=== PATIENT | male | born 1995 | race African-American/Black ===

== ENCOUNTER 2016-06-25 18:53 | Emergency (ER) | payer OTHER ==
[~2016-06-25] VITALS: Ht 175.3 cm; Wt 70.3 kg
[2016-06-25] MEDS ORDERED: CROT60CR TP (21:20)
[2016-06-25] MEDS ORDERED: HYDR-3781 PO (21:20)
[2016-06-25] MEDS ORDERED: METH4TAB PO (21:20)
--- NOTE | 2016-06-25 21:20 | ED Integumentary General ---
General Chief Complaint: Skin/Wound Problems Stated Complaint: UNKNOWN BITE CUEVAS ON BODY Nursing Triage Note: pt reports multiple welts/assumed bug bite cuevas on upper body et face. possibly from hotel bed. Source: patient, RN notes reviewed Exam Limitations: no limitations History of Present Illness Time seen by provider: 21:15 Initial Comments As above and below. Timing/Duration: yesterday Severity: moderate Location: face, torso Possible Cause: other (? bed bugs) Associated Symptoms: rash Allergies and Home Medications Allergies Coded Allergies: nut - unspecified (Unverified Allergy, Unknown, 06/26/16) Home Medications Crotamiton 60 Gm Cream..g., 60 GM TP UD, #1 Ref 0 Prescribed by: ESMER MARIO on 06/25/162119 Hydroxyzine Pamoate 25 Mg Capsule, 25 MG PO Q6H PRN for ITCHING, #30 Ref 0 Prescribed by: ESMER MARIO on 06/25/162119 Methylprednisolone 4 Mg Tab.ds.pk, 4 MG PO UD, #1 Ref 0 Prescribed by: ESMER MARIO on 06/25/162119 Constitutional: see HPI Skin: see HPI, pruritus, rash All Other Systems Reviewed Negative Unless Noted: Yes (Negative excepted noted.) Past [id number] Hx Patient Social History Recent Foreign Travel: No Contact w/Someone Who Travel: No Recent Infectious Disease Expo: No Physical Exam Vital Signs Capillary Refill : Less Than 3 Seconds General Appearance: WD/WN, no apparent distress HEENT: pharynx normal Cardiovascular: regular rate, rhythm Respiratory: no respiratory distress Neurologic/Psychiatric: no motor/sensory deficits, alert, oriented x 3 Skin: warm/dry, rash Skin Problem Location: scalp, torso Skin Problem Character: erythema, macules, papules Progress/Results/Core Measures Results/Orders My Orders Orders - ESMER MARIO DO Prednisone Tablet (Deltasone Tablet) (06/25/16 21:30) Hydroxyzine Oral (Vistaril Capsule) (06/25/16 21:30) Vital Signs/I&O Blood Pressure Mean: 91 Departure Impression Impression: Primary Impression: Insect bite Disposition: 01 HOME, SELF-CARE Condition: Stable Departure-Patient Inst. Decision time for Depature: 21:16 Referrals: NO,LOCAL PHYSICIAN (PCP/Family) Primary Care Physician Patient Instructions: Bedbugs, Insect Bites and Stings (DC) Scripts Crotamiton (Eurax) 60 Gm Cream..g. 60 GM TP UD, #1 TUBE 0 Refills Prov: ESMER MARIO DO 06/25/16 Methylprednisolone (Medrol) 4 Mg Tab.ds.pk 4 MG PO UD, #1 PKG 0 Refills Prov: ESMER MARIO DO 06/25/16 Hydroxyzine Pamoate (Hydroxyzine Pamoate) 25 Mg Capsule 25 MG PO Q6H Y for ITCHING, #30 CAP 0 Refills Prov: ESMER MARIO DO 06/25/16 ESMER MARIO DO Jun 25, 2016 21:20
[2016-06-25 21:29] VITALS: BP 128/60
[2016-06-25] MEDS ORDERED: hydrOXYzine (VISTARIL) 25 MG CAP PO ONE (21:30)
[2016-06-25] MEDS ORDERED: predniSONE 20 MG TAB PO ONE (21:30)
== END 2016-06-25 21:29 | disposition home or self-care (01) ==
LOC: ER 18:56
DX: S30.861A Insect bite (nonvenomous) of abdominal wall, initial encounter (principal); S00.86XA Insect bite (nonvenomous) of other part of head, initial encounter; W57.XXXA Bitten or stung by nonvenomous insect and other nonvenomous arthropods, initial encounter; Y92.59 Other trade areas as the place of occurrence of the external cause; Y99.8 Other external cause status
CPT/HCPCS: 99281